=== PATIENT | female | born 1960 | race Two or more races ===

== ENCOUNTER 2021-02-17 18:13 | Emergency (ER) | payer OTHER, SELFPAY ==
[~2021-02-17] VITALS: Ht 152.4 cm; Wt 56.0 kg
[2021-02-17 19:05] LABS: BASOPHILS % (AUTO) 1 % (0-1); EOSINOPHILS % (AUTO) 3 % (1-7); LYMPHOCYTES % (AUTO) 31 % (22-44); MEAN CORPUSCULAR HEMOGLOBIN 31.4 pg (27.0-34.8); MEAN CORPUSCULAR HGB CONC 33.8 g/dL (32.4-35.8); MEAN PLATELET VOLUME 7.7 fL (7.4-10.4); MONOCYTES % (AUTO) 8 % (2-9); NEUTROPHILS % (AUTO) 58 % (42-75); PLATELET COUNT 230 x10^3/uL (130-400); RED BLOOD COUNT 3.34 x10^6/uL (3.82-5.3); RED CELL DISTRIBUTION WIDTH 12.6 % (9.6-15.2)
[2021-02-17 19:18] LABS: ALANINE AMINOTRANSFERASE 35 U/L (12-78); ALBUMIN 3.2 g/dL (3.4-5.0); ANION GAP 8 mmol/L (5-15); CALCIUM 9.1 mg/dL (8.5-10.1); CHLORIDE 103 mmol/L (98-107); CREATININE 0.88 mg/dL (0.55-1.02)
[2021-02-17 19:22] LABS: ALKALINE PHOSPHATASE 85 U/L (45-117); BILIRUBIN,TOTAL 0.6 mg/dL (0.2-1.0); TOTAL PROTEIN 7.6 g/dL (6.4-8.2); TROPONIN I < 0.015 ng/mL (0.000-0.045)
[2021-02-17] MEDS ORDERED: SODIUM CHLORIDE 0.9% 1,000ML IVBOLUS ONE (22:30)
[2021-02-17] MEDS ORDERED: SODIUM CHLORIDE FLUSH 10ML SYR IVF ONE (22:30)
[2021-02-17 22:49] LABS: T4 (THYROXINE) 9.1 mcg/dL (4.8-13.9)
[2021-02-17 23:35] LABS: MICROSCOPIC AUTO
[2021-02-18] MEDS ORDERED: CEFTRIAXONE 1 GM in DEXTROSE 5% 50 ML IVPB ONE
--- NOTE | 2021-02-18 00:17 | NUR ---
JILLIAN MUELLER. NO BC PER ERP.
[2021-02-18 00:34] VITALS: BP 152/73
== END 2021-02-18 01:11 | disposition home or self-care (01) ==
LOC: ED 23:59
DX: N30.00 Acute cystitis without hematuria (principal); R00.2 Palpitations; R11.0 Nausea; R00.0 Tachycardia, unspecified; R06.02 Shortness of breath; I10 Essential (primary) hypertension; E11.9 Type 2 diabetes mellitus without complications
CPT/HCPCS: 36415; 71045; 80053; 81001; 83735; 84436; 84443; 84484; 85025; 87077; 87086; 87186; 93005; 96361; 96365; 99285; J0696; J7030